=== PATIENT | male | born 1945 | race Caucasian/White ===

== ENCOUNTER 2016-09-28 15:51 | Emergency (ER) | payer MEDICARE, OTHER ==
[2016-09-28 16:29] VITALS: BP 142/81
[2016-09-28] MEDS ORDERED: Meclizine 25 MG Tab PO ONE ×2 (17:42→18:26)
[2016-09-28] MEDS ORDERED: diphenhydrAMINE 25 MG Cap PO ONE (17:42)
--- NOTE | 2016-09-28 17:51 | EDM.PDOC ---
ED HPI GENERAL MEDICAL PROBLEM - General Chief Complaint: General Stated Complaint: DIZZY..VOMITING Time Seen by Provider: 09/28/16 17:00 Source of Information: Reports: Patient History Limitations: Reports: No Limitations - History of Present Illness INITIAL COMMENTS - FREE TEXT/NARRATIVE: 71-year-old male presents to the emergency room with complaints of dizziness, unsteadiness. Patient and his went to the [employer] today and he was playing the slot machines around noon. When he attempted to stand up and move to another machine he felt dizzy and nonsteady. He needed the assistance of the chairs to move. He denied nausea or vomiting. He denied headache, chest pain, shortness of breath. This seemed to improve when he sat down again. They decided that they needed to eat but this did not seem to improve his symptoms. His proceeded to take him home and during the ride home he had one episode of emesis. When he was able to rest at home without movement his symptoms seemed to improve. You do have return of his dizziness every time he tried to stand. She decided to bring into the emergency room for further evaluation. He only complains of some mild fullness in his right ear. He has no other complaints. He denies feeling dehydrated. He has not been excessively working outside in the heat in the last few days. He's not had a prior episode of this in the past. Onset: Today, Sudden Onset Date: 09/28/16 Onset Time: 12:00 Duration: Waxing/Waning Location: Reports: Generalized Severity: Moderate Improves with: Reports: Rest Worsens with: Reports: Movement Associated Symptoms: Reports: Nausea/Vomiting. Denies: Fever/Chills - Related Data Allergies Allergy/AdvReac Type Severity Reaction Status Date / Time No Known Drug Allergies Allergy Cannot Verified 09/28/16 16:30 Remember Home Meds: Home Meds Acetaminophen [Tylenol] 650 mg PO Q4H PRN 09/28/16 [History] Cinnamon Bark [Cinnamon] 500 mg PO BID 09/28/16 [History] Dutasteride [Avodart] 0.5 mg PO DAILY 09/28/16 [History] Lisinopril 20 mg PO BID 09/28/16 [History] Metoprolol Succinate [Toprol XL] 12.5 mg PO BID 09/28/16 [History] Warfarin [Coumadin] 5 mg PO DAILY 09/28/16 [History] Past Medical History HEENT History: Reports: Cataract, Hard of Hearing, Impaired Vision Cardiovascular History: Reports: Heart Murmur, Heart Valve Replacement, Hypertension, ND Respiratory History: Reports: None Gastrointestinal History: Reports: Colon Polyp Genitourinary History: Reports: BPH Musculoskeletal History: Reports: Arthritis, Fracture, Neck Pain, Chronic Neurological History: Reports: None Psychiatric History: Reports: None Endocrine/Metabolic History: Reports: None Hematologic History: Reports: None Immunologic History: Reports: None Oncologic (Cancer) History: Reports: None Dermatologic History: Reports: None - Infectious Disease History Infectious Disease History: Reports: Chicken Pox, Measles, Mumps - Past Surgical History HEENT Surgical History: Reports: Adenoidectomy, Tonsillectomy Cardiovascular Surgical History: Reports: Valve Replacement Respiratory Surgical History: Reports: None GI Surgical History: Reports: Colonoscopy Male Surgical History: Reports: None Endocrine Surgical History: Reports: None Neurological Surgical History: Reports: None Musculoskeletal Surgical History: Reports: None Oncologic Surgical History: Reports: None Dermatological Surgical History: Reports: None Social & Family History - Tobacco Use Smoking Status *Q: Never Smoker Second Hand Smoke Exposure: Yes - Caffeine Use Caffeine Use: Reports: Coffee, Soda - Recreational Drug Use Recreational Drug Use: No ED ROS GENERAL - Review of Systems Review Of Systems: See Below Constitutional: Denies: Weakness, Fatigue, Diaphoresis HEENT: Reports: Other (dizziness, unsteadiness, lightheadedness). Denies: Ear Pain (denies ear pain but feels fullness in the right ear), Hearing Loss, Vertigo Respiratory: Denies: Shortness of Breath Cardiovascular: Reports: Lightheadedness. Denies: Chest Pain, Blood Pressure Problem, Dyspnea on Exertion, Orthopnea, Palpitations, Syncope Endocrine: Reports: High Glucose (borderline type 2 diabetes, currently diet controlled) GI/Abdominal: Reports: Vomiting (one episode of vomiting while riding in the car to home). Denies: Nausea : Reports: No Symptoms Musculoskeletal: Reports: No Symptoms Skin: Reports: No Symptoms Neurological: Reports: Dizziness, Difficulty Walking (unsteadiness). Denies: Confusion, Headache, Numbness, Paresthesia, Seizure, Syncope, Trouble Speaking, Weakness, Change in Speech, Gait Disturbance Psychiatric: Reports: No Symptoms Hematologic/Lymphatic: Reports: Easy Bleeding (on warfarin), Easy Bruising (on warfarin) Immunologic: Reports: No Symptoms ED EXAM, GENERAL - Physical Exam Exam: See Below Exam Limited By: No Limitations General Appearance: Alert, WD/WN, No Apparent Distress Eye Exam: Bilateral Eye: EOMI, Nystagmus (is absent bilaterally), PERRL, Vision Changes (peripheral vision is intact) Ears: Normal External Exam, Normal Canal, Hearing Grossly Normal Ear Exam: Right Ear: TM Dull, Left Ear: TM normal Nose: Normal Inspection, Normal Mucosa, No Blood Throat/Mouth: Normal Inspection, Normal Lips, Normal Teeth, Normal Gums, Normal Oropharynx, Normal Voice, No Airway Compromise Head: Atraumatic, Normocephalic Neck: Normal Inspection, Supple, Non-Tender, Full Range of Motion. No: Lymphadenopathy (L), Lymphadenopathy (R) Respiratory/Chest: No Respiratory Distress, Lungs Clear, Normal Breath Sounds, No Accessory Muscle Use, Chest Non-Tender Cardiovascular: Normal Peripheral Pulses, No Edema, Irregularly Irregular Peripheral Pulses: 2+: Carotid (L), Carotid (R), Radial (L), Radial (R), Dorsalis Pedis (L), Dorsalis Pedis (R) GI/Abdominal: Soft, Non-Tender Back Exam: Normal Inspection Extremities: Normal Inspection, Normal Range of Motion, Non-Tender, No Pedal Edema, Normal Capillary Refill Neurological: Alert, Oriented, CN II-XII Intact, Normal Cognition, Normal Gait ( gait was steady with standby assistance, patient reports is improving and does not feel dizzy), Normal Reflexes, No Motor/Sensory Deficits Psychiatric: Normal Affect, Normal Mood Skin Exam: Warm, Dry, Intact, Normal Color, No Rash Lymphatic: No Adenopathy Course - Vital Signs Last Recorded V/S: Last Vital Signs Temp 97.3 F 09/28/16 16:22 Pulse 74 09/28/16 16:22 Resp 18 09/28/16 16:22 BP 142/81 H 09/28/16 16:22 Pulse Ox 96 09/28/16 16:22 - Orders/Labs/Meds Labs: Laboratory Tests 09/28/16 09/28/16 09/28/16 Range/Units 17:50 17:50 17:50 WBC 9.1 (5.0-10.0) 10^3/uL RBC 5.03 (4.50-6.00) 10^6/uL Hgb 15.1 (13.0-17.0) g/dL Hct 44.5 (40.0-52.0) % MCV 88.4 (82.0-92.0) fL MCH 30.0 (27.0-31.0) pg MCHC 34.0 (32.0-36.0) g/dL RDW 12.4 (11.5-14.5) % Plt Count 159 (150-300) 10^3/uL MPV 8.9 (7.4-10.4) fL Neut % (Auto) 86.1 H (50.0-70.0) % Lymph % (Auto) 9.6 L (20.0-40.0) % [place] % (Auto) 3.2 (2.0-8.0) % Eos % (Auto) 0.3 L (1.0-3.0) % Baso % (Auto) 0.8 (0.0-1.0) % Neut # (Auto) 7.8 H (2.5-7.0) 10^3/uL Lymph # (Auto) 0.9 L (1.0-4.0) 10^3/uL [place] # (Auto) 0.3 (0.1-0.8) 10^3/uL Eos # (Auto) 0.0 L (0.1-0.3) 10^3/uL Baso # (Auto) 0.1 (0.0-0.1) 10^3/uL PT 30.3 H (8.9-11.4) SEC INR 2.9 H (0.9-1.1) Sodium 134 L (136-145) mmol/L Potassium 3.9 (3.3-5.3) mmol/L Chloride 104 (98-115) mmol/L Carbon Dioxide 24.0 (21.0-32.0) mmol/L BUN 20 (6-25) mg/dL Creatinine 0.82 (0.51-1.17) mg/dL Est Cr Clr Drug Dosing 94.67 mL/min Estimated GFR (MDRD) > 60 mL/min Glucose 190 H (70-110) mg/dL Calcium 9.2 (8.7-10.3) mg/dL Meds: Medications Discontinued Medications Generic Name Dose Route Start Last Admin Trade Name Brooks PRN Reason Stop Dose Admin Diphenhydramine HCl 25 mg 09/28/16 17:42 09/28/16 17:52 Benadryl PO 09/28/16 17:43 25 mg ONETIME ONE Administration Meclizine HCl 25 mg 09/28/16 17:42 09/28/16 17:52 Antivert PO 09/28/16 17:43 25 mg ONETIME ONE Administration Meclizine HCl 25 mg 09/28/16 18:26 Antivert PO 09/28/16 18:27 ONETIME ONE Departure - Departure Time of Disposition: 18:35 Disposition: Home, Self-Care 01 Condition: good Clinical Impression: Benign positional vertigo Qualifiers: Laterality: bilateral Qualified Code(s): H81.13 - Benign paroxysmal vertigo, bilateral - Discharge Information Instructions: Benign Positional Vertigo Referrals: Miguelito Huffman MD [Primary Care Provider] - Forms: ED Department Discharge Additional Instructions: 1. Patient instructed to not drive or operate machinery if he is feeling dizzy 2. Patient to get up slowly after sitting or lying down 3. Return to the emergency department followup care doctor right away if any of these symptoms occur: -Worsening headache -Stiff neck -Confusion, drowsiness, or any change in alertness -Loss of memory -Trouble moving her arms or legs -Numbness anywhere -Abdominal (belly), back or chest pain -Fever or shaking chills -Intractable vomiting -Blood in emesis or stools -Dark or black bowel movements 4. Meclizine 25 mg by mouth every 6 hours as needed for dizziness. 5. Followup with your primary care next week if symptoms aren't completely resolved. - Problem List Review Problem List Initiated/Reviewed/Updated: Yes - Assessment/Plan Assessment:: benign positional vertigo Plan: 1. Patient instructed to not drive or operate machinery if he is feeling dizzy 2. Patient to get up slowly after sitting or lying down 3. Return to the emergency department followup care doctor right away if any of these symptoms occur: -Worsening headache -Stiff neck -Confusion, drowsiness, or any change in alertness -Loss of memory -Trouble moving her arms or legs -Numbness anywhere -Abdominal (belly), back or chest pain -Fever or shaking chills -Intractable vomiting -Blood in emesis or stools -Dark or black bowel movements 4. Meclizine 25 mg by mouth every 6 hours as needed for dizziness. 5. Followup with your primary care next week if symptoms aren't completely resolved.
[2016-09-28 18:20] LABS: CHLORIDE,CL 104 mmol/L (98-115); SODIUM,NA 134 mmol/L (136-145)
== END 2016-09-28 18:35 | disposition home or self-care (01) ==
LOC: KA.ED 15:51 → MERGE 15:51 → KA.ED 18:35
DX: H81.13 Benign paroxysmal vertigo, bilateral (principal); H54.7 Unspecified visual loss; I10 Essential (primary) hypertension; I25.2 Old myocardial infarction; Z79.899 Other long term (current) drug therapy; Z79.01 Long term (current) use of anticoagulants; Z90.49 Acquired absence of other specified parts of digestive tract
CPT/HCPCS: 36415; 80048; 85025; 85610; 99284; A9270

== ENCOUNTER 2020-03-15 10:07 | Emergency (ER) | payer MEDICARE, OTHER ==
[2020-03-15 10:48] LABS: ANION GAP 17.1 mmol/L (5-15); CHLORIDE,CL 96 mmol/L (98-115); SODIUM,NA 135 mmol/L (136-145)
[2020-03-15] MEDS: Sodium Chloride 0.9% 1,000 ML IV ONE (10:55)
--- NOTE | 2020-03-15 11:22 | EDM.PDOC ---
ED HPI GENERAL MEDICAL PROBLEM - General Chief Complaint: Respiratory Problem Stated Complaint: DEHYDRATED, FEVER Time Seen by Provider: 03/15/20 10:30 Source of Information: Reports: Patient, RN History Limitations: Reports: No Limitations - History of Present Illness INITIAL COMMENTS - FREE TEXT/NARRATIVE: 4-year-old male presents emergency room brought in by his this morning with complaints of increasing shortness of breath and weakness. Patient states he is felt under weather for approximately 12 to 15 days and believes his symptoms began on . He has had a headache for 10 days. He has noticed some difficulty with his breathing increased shortness of breath since this past Thursday. He reports a low-grade fever last night. He felt he can no longer manage his symptoms at home and told his he better take him to the emergency room. His past medical history is significant for mechanical heart valve replacement on anticoagulation therapy, Coumadin and he also has a history of atrial fibrillation. Upon his arrival he had perioral cyanosis and sluggish capillary refill. His O2 saturations were 65% on room air and he was put on an immediate nonrebreather mask at 13 L of oxygen. His O2 saturations improved to 92%. Gradually his perioral cyanosis improved and noted to have better perfusion and color. He was able to continue to converse on the nonrebreather mask. He was not confused. His respirations were between 28 and 30. He denied significant nausea or vomiting but has had some diarrhea over the last few days. His stated to me on the phone that he had not been eating or drinking fluids for the last 2 to 3 days although this was encouraged and pushed. He lives at home with his is otherwise been fairly healthy other than his history of underlying cardiac valve replacement and atrial fibrillation. Onset: Gradual Onset Date: 02/29/20 Duration: Week(s):, Getting Worse Location: Reports: Head, Chest Quality: Reports: Ache Severity: Severe Improves with: Reports: Other (O2) Worsens with: Reports: None Context: Reports: Sick Contact Associated Symptoms: Reports: Fever/Chills, Headaches, Shortness of Breath, Weakness, Other (diarrhea). 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 Headache Pain Score (Numeric/FACES): 10 - Related Data Allergies Allergy/AdvReac Type Severity Reaction Status Date / Time No Known Drug Allergies Allergy Cannot Verified 03/15/20 10:56 Remember Home Meds: Home Meds Acetaminophen [Tylenol] 650 mg PO Q4H PRN 09/28/16 [History] Cinnamon Bark [Cinnamon] 500 mg PO BID 09/28/16 [History] Dutasteride [Avodart] 0.5 mg PO DAILY 09/28/16 [History] Lisinopril 20 mg PO BID 09/28/16 [History] Metoprolol Succinate [Toprol XL] 12.5 mg PO BID 09/28/16 [History] Warfarin [Coumadin] 5 mg PO DAILY 09/28/16 [History] Warfarin [Coumadin] 2.5 mg PO DAILY 03/15/20 [History] Past Medical History HEENT History: Reports: Cataract, Hard of Hearing, Impaired Vision Cardiovascular History: Reports: Heart Murmur, Hypertension, Heart Valve Replacement, NM Respiratory History: Reports: None Gastrointestinal History: Reports: Colon Polyp Genitourinary History: Reports: BPH Musculoskeletal History: Reports: Arthritis, Fracture, Neck Pain, Chronic Neurological History: Reports: None Psychiatric History: Reports: None Endocrine/Metabolic History: Reports: None Hematologic History: Reports: None Immunologic History: Reports: None Oncologic (Cancer) History: Reports: None Dermatologic History: Reports: None - Infectious Disease History Infectious Disease History: Reports: Chicken Pox, Measles, Mumps - Past Surgical History HEENT Surgical History: Reports: Adenoidectomy, Tonsillectomy Cardiovascular Surgical History: Reports: Valve Replacement Respiratory Surgical History: Reports: None GI Surgical History: Reports: Colonoscopy Male Surgical History: Reports: None Endocrine Surgical History: Reports: None Neurological Surgical History: Reports: None Musculoskeletal Surgical History: Reports: None Oncologic Surgical History: Reports: None Dermatological Surgical History: Reports: None Social & Family History - Caffeine Use Caffeine Use: Reports: Coffee, Soda ED ROS GENERAL - Review of Systems Review Of Systems: See Below Constitutional: Reports: Fever, Weakness. Denies: Diaphoresis HEENT: Reports: No Symptoms Respiratory: Reports: Shortness of Breath. Denies: Wheezing, Cough Cardiovascular: Reports: Blood Pressure Problem, Dyspnea on Exertion. Denies: Chest Pain, Claudication, Edema, Lightheadedness, Palpitations, Syncope Endocrine: Reports: No Symptoms GI/Abdominal: Reports: Diarrhea. Denies: Abdominal Pain : Reports: No Symptoms Musculoskeletal: Reports: No Symptoms Skin: Reports: Cyanosis Neurological: Reports: Headache. Denies: Confusion, Dizziness, Numbness, Paresthesia, Pre-Existing Deficit, Seizure, Syncope, Trouble Speaking, Change in Speech Psychiatric: Reports: No Symptoms Hematologic/Lymphatic: Reports: Easy Bleeding (on anticoagulation meds for mechanical heart valve and Afib) Immunologic: Reports: No Symptoms ED EXAM, GENERAL - Physical Exam Exam: See Below Free Text/Narrative:: Is an elderly gentleman on a nonrebreather mask and respiratory distress with perioral cyanosis. He is nontoxic-appearing. Exam Limited By: Respiratory Distress (Improved cynanosis and O2 sats on NR 12L O2) General Appearance: Alert, WD/WN, Mild Distress Eye Exam: Bilateral Eye: EOMI Ears: Hearing Grossly Normal Nose: Normal Inspection, Normal Mucosa, No Blood Throat/Mouth: Normal Inspection, Normal Voice, No Airway Compromise, Perioral Cyanosis (upon arrival, now resolved with NR 12L O2 O2 sat is 92%, O2 sat upon arrival were 65% RA) Head: Atraumatic Neck: Normal Inspection, Supple, Non-Tender, Full Range of Motion. No: Carotid Bruit, Lymphadenopathy (L), Lymphadenopathy (R) Respiratory/Chest: Respiratory Distress, Decreased Breath Sounds (bases). No: Retractions, Splinting Cardiovascular: Regular Rate, Rhythm Peripheral Pulses: 2+: Carotid (L), Carotid (R), Radial (L), Radial (R) GI/Abdominal: Soft, Non-Tender, No Organomegaly, No Distention Back Exam: Normal Inspection, Full Range of Motion. No: CVA Tenderness (L), CVA Tenderness (R) Extremities: Normal Inspection, Normal Range of Motion, Non-Tender, No Pedal Edema, Slow Capillary Refill Neurological: Alert, Oriented, Normal Cognition, No Motor/Sensory Deficits Psychiatric: Normal Affect, Normal Mood Skin Exam: Warm, Dry, Intact, Normal Color, Cyanosis (upon arrival, resolved with NR O2 at 12L) Lymphatic: No Adenopathy #1 Interpretation EKG Date: 03/15/20 Time: 11:45 Rhythm: A-Fib Rate (Beats/Min): 88 [place]: Normal P-Wave: Present QRS: Normal ST-T: Normal Comparison: NA - No Prior EKG EKG Interpretation Comments: Atrial fibrillation with competing junctional pacemaker with premature ventricular or aberrantly conducted complexes. Inferior infarct age undetermined Abnormal ECG Course - Vital Signs Last Recorded V/S: Last Vital Signs Temp 100.4 F 03/15/20 12:55 Pulse 84 03/15/20 13:25 Resp 28 H 03/15/20 13:25 BP 104/60 03/15/20 13:25 Pulse Ox 94 L 03/15/20 13:25 - Orders/Labs/Meds Orders: Active Orders 24 hr Category Date Time Status Isolation [COMM] Routine Oth 03/15/20 11:06 Ordered EKG 12 Lead [EK] Stat Ther 03/15/20 11:36 Ordered Labs: Laboratory Tests 03/15/20 03/15/20 03/15/20 Range/Units 10:20 10:20 10:20 WBC 6.83 (5.00-10.00) 10^3/uL RBC 4.71 (4.50-6.00) 10^6/uL Hgb 14.5 (13.0-17.0) g/dL Hct 43.6 (40.0-52.0) % MCV 92.6 H D (82.0-92.0) fL MCH 30.8 (27.0-31.0) pg MCHC 33.3 (32.0-36.0) g/dL RDW 13.5 (11.5-14.5) % Plt Count 112 L (150-400) 10^3/uL MPV 10.8 H (7.4-10.4) fL Immature Gran % (Auto) 0.3 (0.0-5.0) % Neut % (Auto) 80.7 H (50.0-70.0) % Lymph % (Auto) 12.4 L (20.0-40.0) % [place] % (Auto) 6.3 (2.0-8.0) % Eos % (Auto) 0.0 L (1.0-3.0) % Baso % (Auto) 0.3 (0.0-1.0) % Neut # (Auto) 5.51 (2.50-7.00) 10^3/uL Lymph # (Auto) 0.85 L (1.00-4.00) 10^3/uL [place] # (Auto) 0.43 (0.10-0.80) 10^3/uL Eos # (Auto) 0.00 L (0.10-0.30) 10^3/uL Baso # (Auto) 0.02 (0.00-0.10) 10^3/uL Immature Gran # (Auto) 0.02 (0.00-0.50) 10^3/uL PT (9.2-11.2) SEC INR (0.9-1.1) D-Dimer, Quantitative 198 (<400) ng/mL Sodium 135 L (136-145) mmol/L Potassium 4.0 (3.3-5.3) mmol/L Chloride 96 L (98-115) mmol/L Carbon Dioxide 25.9 (21.0-32.0) mmol/L Anion Gap 17.1 H (5-15) mmol/L BUN 27 H (6-25) mg/dL Creatinine 0.92 (0.51-1.17) mg/dL Est Cr Clr Drug Dosing 82.92 mL/min Estimated GFR (MDRD) > 60 mL/min Glucose 164 H (75 - 99) mg/dL Lactic Acid (0.4-2.0) mmol/L Calcium 8.7 (8.7-10.3) mg/dL Total Bilirubin 1.4 H (0.2-1.0) mg/dL AST 81 H (15-37) U/L ALT 60 (12-78) U/L Alkaline Phosphatase 36 L (46-116) IU/L Troponin I (0.00-0.070) ng/mL C-Reactive Protein 9.3 H (0.0-0.9) mg/dL Total Protein 7.9 (6.4-8.2) g/dL Albumin 3.52 (3.00-4.80) g/dL SARS CoV-2 RNA Rapid AMIRAH (NEGATIVE) 03/15/20 03/15/20 03/15/20 Range/Units 10:20 10:20 10:20 WBC (5.00-10.00) 10^3/uL RBC (4.50-6.00) 10^6/uL Hgb (13.0-17.0) g/dL Hct (40.0-52.0) % MCV (82.0-92.0) fL MCH (27.0-31.0) pg MCHC (32.0-36.0) g/dL RDW (11.5-14.5) % Plt Count (150-400) 10^3/uL MPV (7.4-10.4) fL Immature Gran % (Auto) (0.0-5.0) % Neut % (Auto) (50.0-70.0) % Lymph % (Auto) (20.0-40.0) % [place] % (Auto) (2.0-8.0) % Eos % (Auto) (1.0-3.0) % Baso % (Auto) (0.0-1.0) % Neut # (Auto) (2.50-7.00) 10^3/uL Lymph # (Auto) (1.00-4.00) 10^3/uL [place] # (Auto) (0.10-0.80) 10^3/uL Eos # (Auto) (0.10-0.30) 10^3/uL Baso # (Auto) (0.00-0.10) 10^3/uL Immature Gran # (Auto) (0.00-0.50) 10^3/uL PT 24.1 H (9.2-11.2) SEC INR 2.4 H (0.9-1.1) D-Dimer, Quantitative (<400) ng/mL Sodium (136-145) mmol/L Potassium (3.3-5.3) mmol/L Chloride (98-115) mmol/L Carbon Dioxide (21.0-32.0) mmol/L Anion Gap (5-15) mmol/L BUN (6-25) mg/dL Creatinine (0.51-1.17) mg/dL Est Cr Clr Drug Dosing mL/min Estimated GFR (MDRD) mL/min Glucose (75 - 99) mg/dL Lactic Acid 4.2 H (0.4-2.0) mmol/L Calcium (8.7-10.3) mg/dL Total Bilirubin (0.2-1.0) mg/dL AST (15-37) U/L ALT (12-78) U/L Alkaline Phosphatase (46-116) IU/L Troponin I < 0.04 (0.00-0.070) ng/mL C-Reactive Protein (0.0-0.9) mg/dL Total Protein (6.4-8.2) g/dL Albumin (3.00-4.80) g/dL SARS CoV-2 RNA Rapid AMIRAH (NEGATIVE) 03/15/20 Range/Units 11:00 WBC (5.00-10.00) 10^3/uL RBC (4.50-6.00) 10^6/uL Hgb (13.0-17.0) g/dL Hct (40.0-52.0) % MCV (82.0-92.0) fL MCH (27.0-31.0) pg MCHC (32.0-36.0) g/dL RDW (11.5-14.5) % Plt Count (150-400) 10^3/uL MPV (7.4-10.4) fL Immature Gran % (Auto) (0.0-5.0) % Neut % (Auto) (50.0-70.0) % Lymph % (Auto) (20.0-40.0) % [place] % (Auto) (2.0-8.0) % Eos % (Auto) (1.0-3.0) % Baso % (Auto) (0.0-1.0) % Neut # (Auto) (2.50-7.00) 10^3/uL Lymph # (Auto) (1.00-4.00) 10^3/uL [place] # (Auto) (0.10-0.80) 10^3/uL Eos # (Auto) (0.10-0.30) 10^3/uL Baso # (Auto) (0.00-0.10) 10^3/uL Immature Gran # (Auto) (0.00-0.50) 10^3/uL PT (9.2-11.2) SEC INR (0.9-1.1) D-Dimer, Quantitative (<400) ng/mL Sodium (136-145) mmol/L Potassium (3.3-5.3) mmol/L Chloride (98-115) mmol/L Carbon Dioxide (21.0-32.0) mmol/L Anion Gap (5-15) mmol/L BUN (6-25) mg/dL Creatinine (0.51-1.17) mg/dL Est Cr Clr Drug Dosing mL/min Estimated GFR (MDRD) mL/min Glucose (75 - 99) mg/dL Lactic Acid (0.4-2.0) mmol/L Calcium (8.7-10.3) mg/dL Total Bilirubin (0.2-1.0) mg/dL AST (15-37) U/L ALT (12-78) U/L Alkaline Phosphatase (46-116) IU/L Troponin I (0.00-0.070) ng/mL C-Reactive Protein (0.0-0.9) mg/dL Total Protein (6.4-8.2) g/dL Albumin (3.00-4.80) g/dL SARS CoV-2 RNA Rapid AMIRAH Positive H (NEGATIVE) Meds: Medications Discontinued Medications Generic Name Dose Route Start Last Admin Trade Name Freq PRN Reason Stop Dose Admin Acetaminophen 1,000 mg 03/15/20 11:15 03/15/20 11:25 Tylenol Extra Strength PO 03/15/20 11:16 1,000 mg ONETIME ONE Administration Dexamethasone 6 mg 03/15/20 12:40 03/15/20 12:52 Decadron IVPUSH 03/15/20 12:41 6 mg ONETIME ONE Administration Sodium Chloride 1,000 mls @ 999 mls/hr 03/15/20 10:50 03/15/20 10:55 Normal Saline IV 03/15/20 11:50 999 mls/hr .BOLUS ONE Administration Sodium Chloride 1,000 mls @ 75 mls/hr 03/15/20 12:00 03/15/20 12:15 Normal Saline IV 75 mls/hr ASDIRECTED SUZANNE Administration - Radiology Interpretation Free Text/Narrative:: 03/15/20 1126 CXR PA or AP 1 view Discussion: Cardiomegaly and central vascular congestion. Median sternotomy. Patchy areas of parenchymal opacification throughout both lungs. No pleural effusion or pneumothorax. - Re-Assessments/Exams Free Text/Narrative Re-Assessment/Exam: 03/15/20 13:34 Patient stable vital signs. O2 remains 94% on 13 L NR mask. Comfortable. Departure - Departure Time of Disposition: 13:30 Disposition: DC/Tfer to Acute Hospital 02 Condition: Serious Clinical Impression: Hypoxemia requiring supplemental oxygen, Tachypnea, COVID-19, Mechanical heart valve present, Anticoagulant long-term use Atrial fibrillation Qualifiers: Atrial fibrillation type: longstanding persistent Qualified Code(s): I48.11 - Longstanding persistent atrial fibrillation - Discharge Information Referrals: Derik Myers NP [Primary Care Provider] - Forms: ED Department Discharge Sepsis Event Note (ED) - Evaluation Sepsis Screening Result: Possible Sepsis Risk Current Stage of Sepsis: Sepsis Possible Source of Sepsis: Pulmonary - Focused Exam Sepsis Event Note Statement: Focused Sepsis Exam Completed Respiratory Effort Without Exertion: Labored - My Orders Last 24 Hours: My Active Orders 03/15/20 11:06 Isolation [COMM] Routine 03/15/20 11:36 EKG 12 Lead [EK] Stat - Assessment/Plan Last 24 Hours: My Active Orders 03/15/20 11:06 Isolation [COMM] Routine 03/15/20 11:36 EKG 12 Lead [EK] Stat Assessment:: Hypoxemia requiring supplemental O2 COVID 19 Atrial Fib Mechanical heart valve present anticoagulant therapy Plan: Long discussion with the patient today regarding admission to the hospital with continued close observation versus transfer to critical care access hospital in [facility]. Patient is a full code. Patient's lactic acid is 4.2 and he remains tachypneic at 30 respirations. He is responded favorably to a nonrebreather at 13 L maintaining O2 saturations in the 90+ percent. I discussed with his respirations at the current rate and O2 saturations with 13 L of oxygen that he is near the max of what we could be provided without intubation. Muscle concern for his sepsis with a lactic acid at 4.2. We did start him on 6 mg of dexamethasone IV and has had 1 L of fluids given with the second liter running at 75 cc an hour. He is only stable. He is able to talk with the use of supplemental oxygen nonlabored. His cyanosis has improved which was pronounced upon his arrival. He is in agreement that transferring up to [place] for further dilation and management due to his respiratory distress and Covid positive diagnosis. Arrangements were made and he will be transferred to [place] [id number] in [place] on [address]. Attending hospitalist is . He was transferred by ground ambulance in stable condition.
[2020-03-15] MEDS: Acetaminophen 500 MG Tab PO ONE (11:25)
--- NOTE | 2020-03-15 11:30 | CR ---
[id number] RAD/RAD Chest PA or AP 1V EXAM: RAD Chest PA or AP 1V INDICATION: HYPOXIA. COMPARISON: None. DISCUSSION: Cardiomegaly and central vascular congestion. Median sternotomy. Patchy areas of parenchymal opacification throughout both lungs. No pleural effusion or pneumothorax. IMPRESSION: Nonspecific patchy areas of parenchymal opacification throughout both lungs. In the setting of cardiomegaly and central vascular congestion, differential diagnosis includes pneumonia versus pulmonary edema. Kemar Abraham MD 03/15/20 1129 Thank you for allowing us to participate in the care of your patient.
[2020-03-15] MEDS: Sodium Chloride 0.9% 1,000 ML IV SCH (12:15)
[2020-03-15] MEDS: Dexamethasone 4 MG/ML SDV IVPUSH ONE (12:52)
[2020-03-15 13:57] VITALS: BP 104/60; PULSE 84
== END 2020-03-15 13:30 ==
LOC: KA.ED 10:07
DX: U07.1 COVID-19 (principal); I48.11 Longstanding persistent atrial fibrillation; I10 Essential (primary) hypertension; I25.2 Old myocardial infarction; N40.0 Benign prostatic hyperplasia without lower urinary tract symptoms; R09.02 Hypoxemia; R06.82 Tachypnea, not elsewhere classified; Z95.2 Presence of prosthetic heart valve; Z79.01 Long term (current) use of anticoagulants; Z79.899 Other long term (current) drug therapy
CPT/HCPCS: 36415; 71045; 80053; 83605; 84484; 85025; 85379; 85610; 86140; 87804; 93005; 96374; 99285; 99285-25; A9270-GY; J1100; J7030; U0002